=== PATIENT | female | born 1990 | race Two or more races ===

== ENCOUNTER → 2019-05-19 | Day surgery (SDC) | payer OTHER ==
[~2019-05-19] MED LIST: CLONAZEPAM0.25 MG PO; SPRINTEC 28 DA1 EACH PO; ZANTAC150 M3 PO; ZOLOFT100 MG PO
== END | disposition home or self-care (01) ==
LOC: ADM 05-13 08:45 → CIR.AMB 07:00 → ADM 08:45
DX: D33.3 Benign neoplasm of cranial nerves (principal); H72.91 Unspecified perforation of tympanic membrane, right ear